=== PATIENT | female | born 1965 | race Caucasian/White ===

== ENCOUNTER 2018-01-25 08:00 | Outpatient (CLI) | payer OTHER | END 2018-01-25 14:14 | disposition home or self-care (01) | LOC: D.MAMMO 08:00 | DX: Z12.31 Encounter for screening mammogram for malignant neoplasm of breast (principal) ==

== ENCOUNTER → 2018-03-02 18:24 | Outpatient (CLI) | payer OTHER | END | disposition home or self-care (01) | LOC: D.MAMMO 10:30 | DX: R92.8 Other abnormal and inconclusive findings on diagnostic imaging of breast (principal) ==

== ENCOUNTER → 2018-03-14 14:07 | Outpatient (CLI) | payer OTHER | END | disposition home or self-care (01) | LOC: D.US 14:07 | DX: R92.8 Other abnormal and inconclusive findings on diagnostic imaging of breast (principal) ==